=== PATIENT | male | born 1980 | race Caucasian/White ===

== ENCOUNTER 2016-10-23 17:11 | Emergency (ER) | payer MEDICAID, OTHER ==
[~2016-10-23] VITALS: Ht 188 cm; Wt 115.7 kg
[2016-10-23 18:24] VITALS: BP 164/108
== END 2016-10-23 18:25 | disposition home or self-care (01) ==
LOC: ER 17:14
DX: H10.9 Unspecified conjunctivitis (principal)
CPT/HCPCS: 99283; A4606; Z7610

== ENCOUNTER 2017-07-22 19:42 | Emergency (ER) | payer MEDICAID, OTHER ==
[~2017-07-22] VITALS: Ht 188 cm; Wt 137.4 kg
[2017-07-22 20:15] VITALS: BP 191/120
[2017-07-22] MEDS ORDERED: IBUPROFEN 600 MG TABLET PO ONE ×2 (21:30→21:50)
[2017-07-22] MEDS ORDERED: HYDROCODONE/APAP 10/325MG 1 EA TABLET PO ONE (21:30)
[2017-07-22] MEDS ORDERED: ALBUTEROL FS 2.5 MG/3 ML VIAL.NEB NEB ONE (21:30)
[2017-07-22] MEDS ORDERED: HYDROCODONE/APAP 10/325MG 1 EA TABLET ONE (21:50)
[2017-07-22] MEDS ORDERED: ALBUTEROL FS 2.5 MG/3 ML VIAL.NEB ONE (22:06)
== END 2017-07-22 22:43 | disposition home or self-care (01) ==
LOC: ER 19:43
DX: J18.9 Pneumonia, unspecified organism (principal); I10 Essential (primary) hypertension; Z88.8 Allergy status to other drugs, medicaments and biological substances
CPT/HCPCS: 71010; 94640; 99283; A4606; Z7610